=== PATIENT | female | born 1990 | race African-American/Black ===

== ENCOUNTER 2016-05-12 09:05 | Emergency (ER) | payer OTHER ==
[~2016-05-12] VITALS: Ht 162.6 cm; Wt 117.9 kg
[2016-05-12 09:11] VITALS: BP 134/60
--- NOTE | 2016-05-12 09:40 | PHYS DOC ---
Past Medical History Past Medical History: Migraines Past Surgical History: Additional Information: Nonsmoker Alcohol Use: None Drug Use: None Adult General Chief Complaint Chief Complaint: SORE THROAT HPI HPI Patient is a 25 year old female who presents with sore throat and nasal congestion for the last 3-4 days. She also reports myalgias and a nonproductive cough. She denies any fever. She recently completed an unknown antibiotic for an ear infection. She states that she took 1 pill daily for 5 days and completed the medication approximately one week ago. She denies any continued pain in her ears but does continue to have decreased hearing bilaterally. She sees a PCP at [facility]. Review of Systems Review of Systems Constitutional: Denies fever or chills. [] Eyes: Denies change in visual acuity, redness, or eye pain. [] HENT: Denies ear pain. Reports sore throat and nasal congestion. Respiratory: Denies shortness of breath. Reports no productive cough. Cardiovascular: Denies chest pain, palpitations or edema. [] Musculoskeletal: Denies back pain or joint pain. Reports myalgias. Integument: Denies rash or skin lesions. [] Neurologic: Denies headache, focal weakness or sensory changes. [] All systems reviewed and negative unless otherwise stated in the HPI. Allergies Allergies Allergies Coded Allergies Type Severity Reaction Last Updated Verified No Known Drug Allergies 04/24/14 No Physical Exam Physical Exam Constitutional: Well developed, well nourished, no acute distress, non-toxic appearance. [] HENT: Normocephalic, atraumatic, bilateral external ears normal, oropharynx moist, no oral exudates, nose normal. Bilateral TMs without erythema or bulging. There is posterior pharyngeal erythema with bilateral tonsillar edema. There are no tonsillar exudates. There is no peritonsillar abscess or uvular deviation. There is purulent posterior pharyngeal nasal drainage. Bilateral nasal turbinates are swollen and erythematous. Eyes: PERRLA, EOMI, conjunctiva normal, no discharge. [] Neck: Normal range of motion, no tenderness, supple, no stridor. [] Cardiovascular: Heart rate regular rhythm, no murmur [] Lungs & Thorax: Bilateral breath sounds clear to auscultation without wheezes, rales, or rhonchi. Skin: Warm, dry, no erythema, no rash. [] Neurologic: Alert and oriented X 3, normal motor function, normal sensory function, no focal deficits noted. [] Psychologic: Affect normal, judgement normal, mood normal. [] Current Patient Data Vital Signs Vital Signs Date Time Temp Pulse Resp B/P Pulse Ox O2 Delivery O2 Flow Rate FiO2 05/12/16 09:11 98.1 88 20 99 Room Air 98.1 Lab Values Laboratory Tests Test 05/12/16 09:25 Group A Streptococcus Rapid Negative (NEGATIVE) EKG EKG [] Radiology/Procedures Radiology/Procedures [] Course & Med Decision Making Course & Med Decision Making Pertinent Labs and Imaging studies reviewed. (See chart for details) [] Dragon Disclaimer Dragon Disclaimer This electronic medical record was generated, in whole or in part, using a voice recognition dictation system. Departure Departure Impression: Primary Impression: Pharyngitis Additional Impression: URI (upper respiratory infection) Disposition: HOME, SELF-CARE Condition: STABLE Referrals: NO PCP (PCP) Patient Instructions: Upper Respiratory Infection, Adult, [id number] Additional Instructions: Your strep test was negative today. You appear to have a viral upper respiratory infection. Antibiotics do not help with this type of infection. Please use the prescribed nasal spray daily to help decrease your nasal congestion and nasal drainage. This will help with your sore throat as well. Please follow up with your primary care provider if your symptoms continue. Return to the emergency department if you have any new or concerning symptoms. Scripts Fluticasone Propionate (Flonase Allergy Relief)9.9 [place].susp2 Sprays NS DAILY #1 BOTTLE Prov:NAZIA GONZALES 05/12/16 Problem Qualifiers Primary Impression: Pharyngitis Pharyngitis/tonsillitis etiology: unspecified etiology Qualified Code: J02.9 - Acute pharyngitis, unspecified Additional Impression: URI (upper respiratory infection) URI type: unspecified viral URI Qualified Code: J06.9 - Acute upper respiratory infection, unspecified NAZIA GONZALES May 12, 2016 09:40
[2016-05-12 10:09] LABS: NEGATIVE OBC STREP NEG; POSITIVE OBC STREP POS
[2016-05-12] MEDS ORDERED: FLUT9.9S NS (10:14)
== END 2016-05-12 10:30 | disposition home or self-care (01) ==
LOC: ER 09:05
DX: J02.9 Acute pharyngitis, unspecified (principal); J06.9 Acute upper respiratory infection, unspecified
CPT/HCPCS: 87070; 87880; 99283

== ENCOUNTER 2017-07-10 12:32 | Emergency (ER) | payer OTHER ==
[2017-07-10 14:22] LABS: URINE HCG POC HCG NEGATIVE (Negative)
== END 2017-07-10 15:48 | disposition home or self-care (01) ==
LOC: ER 15:48
DX: M25.462 Effusion, left knee (principal); G43.909 Migraine, unspecified, not intractable, without status migrainosus
CPT/HCPCS: 73564; 81025; 99284

== ENCOUNTER 2019-08-27 23:01 | Emergency (ER) | payer OTHER ==
[~2019-08-27] VITALS: Ht 162.6 cm; Wt 115.4 kg
[~2019-08-27 23:01] MED LIST: FLUT9.9S NS
--- NOTE | 2019-08-27 23:44 | PHYS DOC ---
Past Medical History Past Medical History: No Pertinent History, Migraines Past Surgical History: No Surgical History, Smoking Status: Former Smoker Alcohol Use: None Drug Use: None General Adult EDM: Chief Complaint: FEVER HPI: HPI: Patient is a 29 year old female who presents with numerous complaints to include fever, chills, body aches along with vomiting and diarrhea. Patient also has had a dry cough. Patient rates her pain to be a 9 out of 10. She states that she has been able to keep some fluid down but no food down since onset on Tuesday. Patient states symptoms are progressively getting worse. She also complains of shortness of breath and states that is worsened with exertion. She states the cough has not been productive. She states that nothing is improving her symptoms. 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 [] Respiratory: Positive cough and shortness of breath. [] Cardiovascular: Denies chest pain or edema. [] GI: Complains of abdominal cramping with vomiting and diarrhea. [] Neurologic: Complains of headache without focal weakness or sensory changes. [] A full 10 point review of systems has been reviewed and is otherwise negative. Heart Score: Risk Factors: Risk Factors: DM, Current or recent (<one month) smoker, HTN, HLP, family history of CAD, obesity. Risk Scores: Score 0 - 3: 2.5% MACE over next 6 weeks - Discharge Home Score 4 - 6: 20.3% MACE over next 6 weeks - Admit for Clinical Observation Score 7 - 10: 72.7% MACE over next 6 weeks - Early Invasive Strategies Allergies: Allergies: Allergies Coded Allergies Type Severity Reaction Last Updated Verified No Known Drug Allergies 04/24/14 No Physical Exam: PE: Constitutional: Well developed, well nourished, no acute distress, non-toxic appearance. [] HENT: Normocephalic, atraumatic, bilateral external ears normal, oropharynx moist, no oral exudates, nose normal. [] Eyes: PERRLA, EOMI, conjunctiva normal, no discharge. [] Neck: Normal range of motion, no tenderness, supple. [] Cardiovascular: Regular rate and rhythm [] Lungs & Thorax: Bilateral breath sounds clear to auscultation [] Abdomen: Bowel sounds normal, soft, with mild diffuse tenderness. [] Skin: Warm, dry, no erythema, no rash. [] Extremities: No tenderness, no cyanosis, no clubbing, ROM intact, no edema. [] Neurologic: Alert and oriented X 3, no focal deficits noted. [] EKG: EKG: [] Radiology/Procedures: Radiology/Procedures: [] Impression: PROCEDURE: PORTABLE CHEST 1V EXAM: CHEST ONE VIEW. HISTORY: Cough and fever. COMPARISON: None. FINDINGS: A frontal view of the chest is obtained. The inspiration is small. Opacities in the right greater than left bases may represent only atelectasis in this setting. There is no pneumothorax or clear pleural effusion. The heart is not enlarged. IMPRESSION: 1. Small inspiration with right greater than left basilar atelectasis or mild infiltrate. Electronically signed by: Logan Young MD (08/28/2019 1:09 AM) [facility] Course & Med Decision Making: Course & Med Decision Making Pertinent Labs and Imaging studies reviewed. (See chart for details) [] Dragon Disclaimer: [employer] Disclaimer: This electronic medical record was generated, in whole or in part, using a voice recognition dictation system. Departure Departure Impression: Primary Impression: Pneumonia Qualified Codes: J18.9 - Pneumonia, unspecified organism Additional Impression: Suspected COVID-19 virus infection Disposition: 01 HOME, SELF-CARE Condition: STABLE Referrals: UNKNOWN PCP NAME (PCP) Patient Instructions: Pneumonia, Adult Scripts Azithromycin (ZITHROMAX) 250 Mg Tablet 1 PKG PO UD, #6 TAB Prov: DAVID MCCONNELL Jr. DO 08/28/19 Amoxicillin/Potassium Clav (AUGMENTIN 875-125 TABLET) 1 Each Tablet 1 TAB PO BID for 10 Days, #20 TAB 0 Refills Prov: DAVID MCCONNELL Jr. DO 08/28/19 DAVID MCCONNELL Jr. DO August 27, 2019 23:44
[2019-08-28] MEDS ORDERED: IV NORMAL SALINE 1000ML BAG 1,000 ML IV SCH
[2019-08-28] MEDS ORDERED: ACETAMINOPHEN 500 MG TABLET PO ONE
[2019-08-28 00:06] LABS: BILIRUBIN,URINE NEGATIVE (NEG); CLARITY,URINE CLEAR; COLOR,URINE YELLOW; NITRITE,URINE NEGATIVE (NEG); PH,URINE 6.5 (<5.0-8.0); PROTEIN,URINE NEGATIVE (NEG-TRACE); UROBILINOGEN,URINE 0.2 mg/dL (0.2 mg/dL)
[2019-08-28 00:11] LABS: BASO % 0 % (0-3); EOS % 0 % (0-3); HEMATOCRIT 40.9 % (36.0-47.0); HEMOGLOBIN 14.2 g/dL (12.0-15.5); LYMPH # 2.7 x10^3/uL (1.0-4.8); LYMPH % 22 % (24-48); MEAN CORPUSCULAR HEMOGLOBIN 34 pg (25-35); MEAN CORPUSCULAR HGB CONC 35 g/dL (31-37); MEAN CORPUSCULAR VOLUME 97 fL (79-100); MONO # 0.5 x10^3/uL (0.0-1.1); MONO % 4 % (0-9); NEUT # 9.3 x10^3/uL (1.8-7.7); NEUT % 74 % (31-73); PLATELET COUNT 352 x10^3/uL (140-400); RED BLOOD COUNT 4.21 x10^6/uL (3.50-5.40); RED CELL DISTRIBUTION WIDTH 16.3 % (11.5-14.5); WHITE BLOOD COUNT 12.6 x10^3/uL (4.0-11.0)
[2019-08-28 00:19] LABS: INFLUENZA A PATIENT NEGATIVE (NEGATIVE); INFLUENZA B PATIENT NEGATIVE (NEGATIVE)
[2019-08-28 00:20] LABS: CALCIUM 8.5 mg/dL (8.5-10.1); CREATININE 1.2 mg/dL (0.6-1.0); GFR 64.3; POTASSIUM 3.6 mmol/L (3.5-5.1)
[2019-08-28 00:22] LABS: BACTERIA,URINE MODERATE /HPF (0-FEW); SQUAMOUS EPITHELIAL CELL,UR MANY /LPF
[2019-08-28] MEDS: fentaNYL PF VIAL 100 MCG/2 ML VIAL IV PRN ×2 (00:25→02:31)
[2019-08-28 00:26] LABS: ALBUMIN 3.8 g/dL (3.4-5.0); ALBUMIN/GLOBULIN RATIO 0.9 (1.0-1.7); TOTAL BILIRUBIN 0.3 mg/dL (0.2-1.0); TOTAL PROTEIN 8.1 g/dL (6.4-8.2)
[2019-08-28] MEDS ORDERED: ONDANSETRON PF 4 MG/2 ML VIAL. IVP ONE (00:30)
--- NOTE | 2019-08-28 01:12 | RAD ---
EXAM: CHEST ONE VIEW. HISTORY: Cough and fever. COMPARISON: None. FINDINGS: A frontal view of the chest is obtained. The inspiration is small. Opacities in the right greater than left bases may represent only atelectasis in this setting. There is no pneumothorax or clear pleural effusion. The heart is not enlarged. IMPRESSION: 1. Small inspiration with right greater than left basilar atelectasis or mild infiltrate. Electronically signed by: Logan Young MD (08/28/2019 1:09 AM) [facility]
[2019-08-28] MEDS ORDERED: AZIT250T PO (02:15)
[2019-08-28] MEDS ORDERED: AMOX1TAB61 PO (02:15)
[2019-08-28] MEDS ORDERED: cefTRIAXone IV Push 1 GM VIAL. IVP ONE (02:30)
[2019-08-28] MEDS ORDERED: AZITHROMYCIN 250 MG TABLET. PO ONE (02:30)
[2019-08-28 03:41] VITALS: BP 130/87
--- NOTE | 2019-08-29 07:05 | NUR ---
IP: Pt is COVID negative.
== END 2019-08-28 03:41 | disposition home or self-care (01) ==
LOC: ER 23:01
DX: J18.9 Pneumonia, unspecified organism (principal); Z03.818 Encounter for observation for suspected exposure to other biological agents ruled out; G43.909 Migraine, unspecified, not intractable, without status migrainosus; Z87.891 Personal history of nicotine dependence
CPT/HCPCS: 36415; 71045; 80053; 81001; 81025; 83605; 85025; 87040; 87070; 87086; 87804; 87880; 96361; 96374; 96375; 96376; 99285; J0696; J2405; J3010; J7030; U0003-CS

== ENCOUNTER 2020-03-01 03:28 | Emergency (ER) | payer OTHER ==
[~2020-03-01] VITALS: Ht 162.6 cm; Wt 109.0 kg
[~2020-03-01 03:28] MED LIST changes: +AMOX1TAB61 PO; +AZIT250T PO
[2020-03-01 03:35] VITALS: BP 159/111
[2020-03-01] MEDS ORDERED: HYDROcodone/APAP 5/325MG 1 TAB TABLET PO ONE (03:45)
[2020-03-01] MEDS ORDERED: NEOMY/BACITR/POLYMYXIN OINT PACKET. TP ONE (03:45)
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
[2020-03-01] MEDS ORDERED: HYDR-3164 PO (03:56)
[2020-03-01] MEDS ORDERED: SILV20CR14 TP (03:56)
[2020-03-01] MEDS ORDERED: DIPH,PERTUSS(ACELL),TET VAC/PF 0.5 ML SYRINGE. VAX IM ONE (04:00)
== END 2020-03-01 04:11 | disposition home or self-care (01) ==
LOC: ER 03:28
DX: T23.231A Burn of second degree of multiple right fingers (nail), not including thumb, initial encounter (principal); G43.909 Migraine, unspecified, not intractable, without status migrainosus; E66.9 Obesity, unspecified; Z68.41 Body mass index [BMI] 40.0-44.9, adult; Z87.891 Personal history of nicotine dependence; Z98.890 Other specified postprocedural states; Z88.0 Allergy status to penicillin; T31.0 Burns involving less than 10% of body surface; X08.8XXA Exposure to other specified smoke, fire and flames, initial encounter; Y93.89 Activity, other specified; Y92.89 Other specified places as the place of occurrence of the external cause; Y99.8 Other external cause status
CPT/HCPCS: 16020; 90471; 90715; 99283